=== PATIENT | female | born 1965 ===

== ENCOUNTER 2020-04-19 09:56 | Outpatient (CLI) | payer SELFPAY ==
[2020-04-19 10:46] LABS: Cortisol Random 0.68 ug/mL (2.47-19.5)
== END 2020-04-19 09:57 | disposition home or self-care (01) ==
LOC: LAB 09:56
PROVIDERS: Visit Provider Internal Medicine Cardiovascular Disease
DX: E27.40 Unspecified adrenocortical insufficiency (principal)
CPT/HCPCS: 36415; 82533

== ENCOUNTER → 2020-04-24 16:22 | Outpatient (BNVA) | payer OTHER, SELFPAY | PROVIDERS: Referring Provider Internal Medicine Cardiovascular Disease; Visit Provider Internal Medicine Cardiovascular Disease | DX: Z11.59 Encounter for screening for other viral diseases (principal) | CPT/HCPCS: 87635 ==

== ENCOUNTER 2020-04-26 09:11 | Outpatient (CLI) | payer SELFPAY ==
[2020-04-26 09:32] LABS: Ionized Calcium 0.9 mmol/L (1.1-1.4)
[2020-04-26 09:57] LABS: Calcium 7.4 mg/dL (8.5-10.5); Prolactin 6.54 ng/mL (4.8-23.3)
== END 2020-04-26 09:12 | disposition home or self-care (01) ==
LOC: LAB 09:13
PROVIDERS: Visit Provider Internal Medicine Cardiovascular Disease
DX: E20.8 Other hypoparathyroidism (principal)
CPT/HCPCS: 36415; 82310; 82330; 84146

== ENCOUNTER → 2020-09-24 11:57 | Outpatient (BNVA) | payer OTHER, SELFPAY | PROVIDERS: Visit Provider Nurse Practitioner | DX: Z20.828 Contact with and (suspected) exposure to other viral communicable diseases (principal) | CPT/HCPCS: 87635 ==

== ENCOUNTER 2020-09-27 08:19 | Outpatient (CLI) | payer SELFPAY ==
[2020-09-27 09:34] LABS: Cortisol Random 0.92 ug/dL (2.47-19.5)
== END 2020-09-27 08:20 | disposition home or self-care (01) ==
PROVIDERS: Visit Provider Internal Medicine Cardiovascular Disease
DX: D35.00 Benign neoplasm of unspecified adrenal gland (principal)
CPT/HCPCS: 36415; 82533

== ENCOUNTER 2021-08-08 09:01 | Outpatient (CLI) | payer SELFPAY | END 2021-08-08 09:02 | disposition home or self-care (01) | PROVIDERS: Visit Provider Internal Medicine Cardiovascular Disease | DX: E20.8 Other hypoparathyroidism (principal) | CPT/HCPCS: 36415; 82533 ==